=== PATIENT | female | born 1960 | race Native Hawaiian/Other Pacific Islander ===

== ENCOUNTER 2018-09-04 21:37 | Emergency (ER) | payer BC ==
[2018-09-04] MEDS ORDERED: Sodium Chloride 0.9% 1,000 ML IV ONE (22:13)
--- NOTE | 2018-09-04 22:40 | ED PDOC ---
Syncope/Near Syncope/Dizziness Time Seen by Provider: 09/04/18 21:54 Chief Complaint (Nursing): Syncope Chief Complaint (Provider): Syncope History Per: Patient, Other (friend at bedside) History/Exam Limitations: no limitations Onset/Duration Of Symptoms: Mins Current Symptoms Are (Timing): Better Additional Complaint(s): 57 y/o female with a PMHx of a tracey esophagus, pre-diabetes, HTN and CAD presents to the ED for evaluation of a syncopal episode, onset just prior to arrival. Patient states she was in a verbal altercation with her son-in-law, during which she got emotional and flustered, thus passing out as a result. Friend at bedside states she was able to catch the patient during the fall. Patient states she has otherwise been fine all day. Patient is now complaining of a global pressure-like headache and nausea. Patient reports of being dizzy at the time of the syncopal episode. Otherwise: (-) head injury, (-) taking any medications prior to arrival, (-) changes in vision, (-) numbness, (-) weakness, (-) chest pain, (-) shortness of breath, (-) abdominal pain. PMD: in [facility]: Three years ago Past Medical History Reviewed: Historical Data, Nursing Documentation, Vital Signs Vital Signs: Last Vital Signs Temp 99.1 F 09/04/18 21:40 Pulse 99 H 09/04/18 21:40 Resp 16 09/04/18 21:40 BP 141/96 H 09/04/18 21:40 Pulse Ox 100 09/04/18 21:40 - Medical History PMH: CAD, Cardia Arrhythmia, Diabetes (Pre-DM), HTN, Hypercholesterolemia Other PMH: Tracey Esophagus - Surgical History Surgical History: Other surgeries: Right Meniscus Procedure, Kidney Stone Procedure - Family History Family History: States: Unknown Family Hx - Home Medications Home Medications: Ambulatory Orders Medication Instructions Recorded RX: Naproxen 500 mg PO BID PRN #20 tab 09/05/18 - Allergies Allergies/Adverse Reactions: Allergies Allergy/AdvReac Type Severity Reaction Status Date / Time nut - unspecified Allergy ANAPHYLAXIS Verified 09/04/18 21:43 Review of Systems ROS Statement: Except As Marked, All Systems Reviewed And Found Negative Eyes: Negative for: Vision Change Cardiovascular: Negative for: Chest Pain Respiratory: Negative for: Shortness of Breath Gastrointestinal: Negative for: Abdominal Pain Neurological: Positive for: Headache, Dizziness (at time of syncopal episode), Other (Syncope). Negative for: Weakness, Numbness Physical Exam - Reviewed Nursing Documentation Reviewed: Yes Vital Signs Reviewed: Yes - Physical Exam Comments: GENERAL APPEARANCE: Patient is awake, alert, oriented x 3, in no acute distress. SKIN: Warm, dry; (-) cyanosis; (-) rash. HEAD: (-) scalp swelling or tenderness, (-) temporal artery tenderness. EYES: (-) conjunctival pallor, (-) scleral icterus. ENMT: (-) sinus tenderness; mucous membranes are moist. Pharynx clear, uvula midline (-) erythema (-) exudate NECK: Supple, FROM (-) tenderness, (-) stiffness, (-) meningismus, (-) lymphadenopathy. CHEST AND RESPIRATORY: (-) rales, (-) rhonchi, (-) wheezes; breath sounds equal bilaterally. Respirations nonlabored. HEART AND CARDIOVASCULAR: (-) irregularity ABDOMEN AND GI: Soft; (-) tenderness (-) guarding (-) distention. EXTREMITIES: (-) deformity. NEURO AND PSYCH: Mental status as above. 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 Strength symmetric. Speech: clear (-) aphasia - Laboratory Results Result Diagrams: 09/04/18 22:35 09/04/18 22:35 Urine dip results: Positive for: Blood (trace-lysed), Protein (30). 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 U/A and U/C ordered. 2340 EKG: NSR @ 98bpm, (-) ST elevation, QTc 482 CBC, CMP, and coag profile unremarkable. CT RESULTS FINDINGS: BRAIN No acute intraparenchymal hemorrhage. No mass lesion. No CT evidence for acute territorial infarct. No midline shift or extra-axial collections. VENTRICLES: No hydrocephalus. ORBITS: The orbits are unremarkable. SINUSES AND MASTOIDS: The paranasal sinuses and mastoid air cells are clear. BONES: No fracture. SOFT TISSUES: Unremarkable. IMPRESSION: No acute intracranial abnormality. Electronically signed on Sep 05, 2018 12:21:24 AM EST by: Dorian Lui M.D., KI Certified By [employer] [facility] Fellowship Trained MRI and CT Specialist CXR: no acute disease as read by Miky ESPANA. 0110 Repeat HR: 95 Repeat BP: 127/81 On re-evaluation, patient ambulatory to and from ED restroom. Patient reports resolution of symptoms. On exam, patient remains AAOx3, in no acute distress. Lungs clear to auscultation, cardiac RRR, abdomen soft, non-tender, repeat neuro exam shows no focal findings. Vitals stable. Lab/Diagnostic results d/w the patient in great detail. Diagnosis of syncope, vasovagal episode, headache d/w the patient. Based on history, exam and diagnostic results, plan will be for outpatient follow up. Patient instructed to follow-up with pmd / referral provided / the clinic in 1- 2 days without fail. Advised to take medication as prescribed. Return to the emergency room at any time for any new or worsening symptoms. Patient states she fully agrees with and understands discharge instructions. States that she agrees with the plan and disposition. Verbalized and repeated discharge instructions a nd plan. I have given the patient opportunity to ask any additional questions. Scribe Attestation: Documented by Mary Hubbard, acting as a scribe for Malia Bolaños PA-C. Provider Scribe Attestation: All medical record entries made by the Scribe were at my direction and personally dictated by me. I have reviewed the chart and agree that the record accurately reflects my personal performance of the history, physical exam, medical decision making, and the department course for this patient. I have also personally directed, reviewed, and agree with the discharge instructions and disposition. Disposition - Clinical Impression Clinical Impression: Syncope, Headache, Vasovagal syncope - Patient ED Disposition Is Patient to be Admitted: No Counseled Patient/Family Regarding: Studies Performed, Diagnosis, Need For Followup, Rx Given - Disposition Referrals: Troy Woo MD [Medical Doctor] - primary, doctor [Other] Disposition: Routine/Home Disposition Time: :18 Condition: STABLE Additional Instructions: The emergency medical care you received today was directed at your acute symptoms. If you were prescribed any medication, please fill it and take as directed. It may take several days for your symptoms to resolve. Return to the Emergency Department if your symptoms worsen, do not improve, or if you have any other problems. Please contact your doctor in 2 days for re-evaluation and follow up / or call one of the physicians/clinics you have been referred to that are listed on the Patient Visit Information form that is included in your discharge packet. Bring any paperwork you were given at discharge with you along with any medications you are taking to your follow up visit. Our treatment cannot replace ongoing medical care by a primary care provider (PCP) outside of the emergency departme . Prescriptions: RX: Naproxen 500 mg PO BID PRN #20 tab PRN Reason: Headache Instructions: Tension Headache, Syncope (Fainting), Vasovagal Response (DC) Forms: [employer] (Polish) Print Language: FRENCH - POA Present On Arrival: None Results - Lab Results Lab Results: 09/04/18 09/04/18 09/04/18 23:29 22:35 22:35 WBC RBC Hgb Hct MCV MCH MCHC RDW Plt Count MPV Neut % (Auto) Lymph % (Auto) Collier % (Auto) Eos % (Auto) Baso % (Auto) Neut # (Auto) Lymph # (Auto) Collier # (Auto) Eos # (Auto) Baso # (Auto) PT 10.6 INR 0.9 APTT 26.6 Sodium 138 Potassium 4.6 Chloride 107 Carbon Dioxide 22 Anion Gap 14 BUN 18 H Creatinine 0.6 L Est GFR ( Amer) > 60 Est GFR (Non-Af Amer) > 60 POC Glucose (mg/dL) Random Glucose 135 H Calcium 9.2 Total Bilirubin 0.4 AST 28 ALT 34 Alkaline Phosphatase 91 Troponin I < 0.0120 Total Protein 8.2 Albumin 4.4 Globulin 3.7 Albumin/Globulin Ratio 1.2 Urine Color Straw Urine Clarity Clear Urine pH 5.0 Ur Specific [place] 1.011 Urine Protein Negative Urine Glucose (UA) Neg Urine Ketones Negative Urine Blood Small Urine Nitrate Negative Urine Bilirubin Negative Urine Urobilinogen 0.2-1.0 Ur Leukocyte Esterase Neg Urine RBC (Auto) 1 Urine Microscopic WBC 2 Ur Squamous Epith Cells 1 Urine Bacteria Rare Hyaline Casts 0-2 09/04/18 09/04/18 22:35 22:33 WBC 5.2 RBC 4.44 Hgb 13.3 Hct 38.9 MCV 87.6 MCH 29.9 MCHC 34.1 RDW 13.4 Plt Count 209 MPV 7.6 Neut % (Auto) 62.0 Lymph % (Auto) 31.1 Collier % (Auto) 4.9 Eos % (Auto) 1.5 Baso % (Auto) 0.5 Neut # (Auto) 3.2 Lymph # (Auto) 1.6 Collier # (Auto) 0.3 Eos # (Auto) 0.1 Baso # (Auto) 0.0 PT INR APTT Sodium Potassium Chloride Carbon Dioxide Anion Gap BUN Creatinine Est GFR ( Amer) Est GFR (Non-Af Amer) POC Glucose (mg/dL) 125 H Random Glucose Calcium Total Bilirubin AST ALT Alkaline Phosphatase Troponin I Total Protein Albumin Globulin Albumin/Globulin Ratio Urine Color Urine Clarity Urine pH Ur Specific [place] Urine Protein Urine Glucose (UA) Urine Ketones Urine Blood Urine Nitrate Urine Bilirubin Urine Urobilinogen Ur Leukocyte Esterase Urine RBC (Auto) Urine Microscopic WBC Ur Squamous Epith Cells Urine Bacteria Hyaline Casts
[2018-09-04 22:47] LABS: BASO % 0.5 % (0.0-2.0); EOS # 0.1 K/uL (0.0-0.7); EOS % 1.5 % (0.0-4.0); HEMOGLOBIN 13.3 g/dL (12.0-16.0); LYMPH # 1.6 K/uL (1.0-4.3); LYMPH % 31.1 % (20.0-40.0); MEAN CELL VOLUME 87.6 fl (81.0-99.0); MEAN CORPUSCULAR HEMOGLOBIN 29.9 pg (27.0-31.0); MEAN CORPUSCULAR HGB CONC 34.1 g/dL (33.0-37.0); MEAN PLATELET VOLUME 7.6 fl (7.2-11.7); MONO # 0.3 K/uL (0.0-0.8); MONO % 4.9 % (0.0-10.0); NEUT # 3.2 K/uL (1.8-7.0); NRBC % 0.1 % (0.0-0.0); RBC 4.44 Mil/uL (3.80-5.20); RED CELL DISTRIBUTION WIDTH 13.4 % (11.5-14.5); WHITE BLOOD COUNT 5.2 K/uL (4.8-10.8)
[2018-09-04 22:51] LABS: INR 0.9; PROTHROMBIN TIME 10.6 Seconds (9.8-13.1)
[2018-09-04 22:53] LABS: PARTIAL THROMBOPLASTIN TIME 26.6 Seconds (25.6-37.1)
[2018-09-04 22:57] LABS: ALB/GLOB RATIO 1.2 (1.0-2.1); ALBUMIN 4.4 g/dL (3.5-5.0); ALT/SGPT 34 U/L (9-52); AST/SGOT 28 U/L (14-36); BLOOD UREA NITROGEN 18 mg/dl (7-17); CALCIUM 9.2 mg/dL (8.4-10.2); GFR NON-AFRICAN AMERICAN > 60
[2018-09-05 00:01] LABS: SQUAMOUS EPITHIAL 1 /hpf (0-5); URINE BACTERIA RARE (<OCC); URINE BILIRUBIN NEGATIVE (NEGATIVE); URINE BLOOD SMALL (NEGATIVE); URINE CLARITY CLEAR (Clear); URINE COLOR STRAW (YELLOW); URINE GLUCOSE (UA) NEG (NEGATIVE); URINE HYALINE CAST 0-2 /hpf (0-2); URINE LEUKOCYTE ESTERASE NEG Leu/uL (Negative); URINE PROTEIN NEGATIVE (NEGATIVE); URINE UROBILINOGEN 0.2-1.0 mg/dL (0.2-1.0)
[2018-09-05 01:14] VITALS: BP 127/81; PULSE 95; RESP 19; TEMP 98.3
[2018-09-05 01:16] VITALS: O2SAT 100
--- NOTE | 2018-09-05 14:12 | CT ---
Date of service: 09/04/2018 PROCEDURE: CT HEAD WITHOUT CONTRAST. HISTORY: syncope COMPARISON: None available. TECHNIQUE: Axial computed tomography images were obtained through the head/brain without intravenous contrast. Radiation dose: Total exam DLP = 687.82 mGy-cm. This CT exam was performed using one or more of the following dose reduction techniques: Automated exposure control, adjustment of the mA and/or kV according to patient size, and/or use of iterative reconstruction technique. FINDINGS: HEMORRHAGE: No intracranial hemorrhage. BRAIN: No mass effect or edema. No atrophy or chronic microvascular ischemic changes. Mild generalized volume loss. VENTRICLES: Unremarkable. No hydrocephalus. CALVARIUM: Unremarkable. PARANASAL SINUSES: Unremarkable as visualized. No significant inflammatory changes. MASTOID AIR CELLS: Unremarkable as visualized. No inflammatory changes. OTHER FINDINGS: None. IMPRESSION: No acute intracranial hemorrhage. Mild generalized volume loss.
--- NOTE | 2018-09-05 16:05 | RAD ---
Date of service: 09/04/2018 HISTORY: Status post syncope. COMPARISON: None available. FINDINGS: LUNGS: Poor inspiration with low lung volumes, crowded bronchovascular markings and minor bibasilar atelectasis.. PLEURA: No significant pleural effusion identified, no pneumothorax apparent. CARDIOVASCULAR: No aortic atherosclerotic calcification present. Normal cardiac size. No pulmonary vascular congestion. OSSEOUS STRUCTURES: No significant abnormalities. VISUALIZED UPPER ABDOMEN: Normal. OTHER FINDINGS: None. IMPRESSION: Poor inspiration with low lung volumes, crowded bronchovascular markings and minor bibasilar atelectasis..
--- NOTE | 2018-09-06 00:25 | CARD ---
APPROVED REPORT Date of service: 09/04/2018 EKG Measurement Heart [id number] <Conclusion> Normal sinus rhythm Inferior infarct, age undetermined Abnormal ECG
== END 2018-09-05 01:29 | disposition home or self-care (01) ==
LOC: H.ER 21:37
DX: R55 Syncope and collapse (principal); R51 Headache; I10 Essential (primary) hypertension; E11.8 Type 2 diabetes mellitus with unspecified complications; K22.70 Barrett's esophagus without dysplasia
CPT/HCPCS: 70450; 71045; 80053; 81003; 82948; 84484; 85025; 85610; 85730; 87086; 93005; 96360; 99285; J7040